=== PATIENT | male | born 1970 | race Caucasian/White ===

== ENCOUNTER 2019-03-02 04:45 | Emergency (ER) | payer MEDICAID ==
--- NOTE | 2019-03-02 04:51 | ED Physician Documentation ---
PD HPI ANIMAL BITE - Stated complaint Stated Complaint: DOG BITE - History obtained from History obtained from: Patient - History of Present Illness Location of injury(ies): RLE (he says he was bitten by his friends dog as he went to pet it. Bit right inner thigh, left posterior thigh, and right calf. He says he felt some tingling around the bite area on the right leg briefly after the bite. He also noted some "welts" hives on arms and legs after. Denies new soaps, meds, foods. He was concerned about rabies as he read online that there can be tingling symptoms with the development of rabies. Has noted some redness of the wounds the past day.), LLE Details of the event: Dog, Bite, Pet animal, Well appearing, Immunization unknown, Animal can be observed, Animal control notified Timing - onset: How many days ago (4) Timing - duration: Days (had the tingling around the wound just soon after the injury and not since.) Timing - details: Abrupt onset Associated symptoms: Tingling (briefly after the injury, not since.), Discolored (bruising inner right thigh). No: Weakness, Numbness Similar symptoms before: Has not had sx before Review of Systems Constitutional: denies: Fever, Chills, Myalgias Neurologic: denies: Focal weakness, Numbness PD PAST MEDICAL HISTORY - Past Medical History Cardiovascular: None Respiratory: Asthma Neuro: None Endocrine/Autoimmune: None - Present Medications Home Medications: Ambulatory Orders Medication Instructions Recorded Confirmed Albuterol Sulf [Ventolin Hfa 1 - 2 puffs INH Q4HR PRN #1 inhaler 03/02/19 Inhaler] Amox/Clav 875/125 [Augmentin] 1 each PO Q12H #14 tablet 03/02/19 - Allergies Allergies/Adverse Reactions: Allergies Allergy/AdvReac Type Severity Reaction Status Date / Time No Known Drug Allergies Allergy Verified 03/02/19 04:52 PD ED PE NORMAL - Vitals Vital signs reviewed: Yes - General General: Alert and oriented X 3, No acute distress, Well developed/nourished - Respiratory Respiratory: No respiratory distress - Derm Derm: Normal color, Warm and dry - Extremities Extremities: Other (right inner thigh with bite fuchs with redness but no drainage. No fluctuance. There is bruising noted medial thigh. No deeper muscle tenderness. Right calf and posterior left thigh with bites with redness as well. No drainage nor fluctuance. Locally tender. No deeper muscle tenderness. ) - Neuro Neuro: Alert and oriented X 3, No motor deficit, No sensory deficit, Normal speech Results - Vitals Vitals: Vital Signs - 24 hr 03/02/19 04:47 Temperature 36.2 C L Heart Rate 103 H Respiratory 16 Rate Blood Pressure 115/72 O2 Saturation 97 PD MEDICAL DECISION MAKING - ED course Complexity details: considered differential (Presume some peripheral nerve irritation caused the tingling right after the bite, as that would not be indicative of rabies. Nurse notified [facility] to report it and Animal Control will follow up with the dog plastic shaper. ), d/w patient Departure - Departure Disposition: 01 Home, Self Care Clinical Impression: Infected wound Dog bite of multiple sites of lower extremity Qualifiers: Encounter type: initial encounter Laterality: unspecified laterality Qualified Code(s): S81.859A - Open bite, unspecified lower leg, initial encounter Condition: Stable Record reviewed to determine appropriate education?: Yes Instructions: ED Bite Dog Prescriptions: Albuterol Sulf [Ventolin Hfa Inhaler] 1 - 2 puffs INH Q4HR PRN #1 inhaler PRN Reason: Shortness Of Air/Wheezing Amox/Clav 875/125 [Augmentin] 1 each PO Q12H #14 tablet Comments: The wounds do have some redness suggesting a mild early infection. Use Augmentin twice daily for the next week. Use ibuprofen or naproxen anti-inflammatories to decrease some of the irritation and pain. [place] it is not recommended by the health department to treat for rabies but to just follow-up on the animal to ensure there is doing okay. Animal control was contacted and they will follow-up with the dog's plastic shaper to ensure no symptoms of rabies develop in the dog.
[2019-03-02 04:52] VITALS: BP 115/72
[2019-03-02] MEDS ORDERED: IBUPROFEN 600 MG TABLET PO STA (05:03)
[2019-03-02] MEDS ORDERED: AMOX/CLAV 875 MG/125 MG TABLET PO STA (05:03)
== END 2019-03-02 05:22 | disposition home or self-care (01) ==
LOC: ED 04:45
DX: S71.152A Open bite, left thigh, initial encounter (principal); S71.151A Open bite, right thigh, initial encounter; S81.851A Open bite, right lower leg, initial encounter; L08.9 Local infection of the skin and subcutaneous tissue, unspecified; W54.0XXA Bitten by dog, initial encounter
CPT/HCPCS: 99283; A9270

== ENCOUNTER 2019-06-22 17:50 | Outpatient (CLI) | payer MEDICAID | END 2019-06-22 17:51 | disposition critical access hospital (66) | LOC: EMS 17:50 | PROVIDERS: ATTEND Surgery | DX: R11.10 Vomiting, unspecified (principal); Z72.89 Other problems related to lifestyle | CPT/HCPCS: A0425; A0429 ==

== ENCOUNTER 2019-06-22 18:10 | Emergency (ER) | payer MEDICAID ==
[2019-06-22] MEDS ORDERED: ONDANSETRON 4 MG/2 ML VIAL IVP STA (18:35)
[2019-06-22] MEDS ORDERED: SODIUM CHLORIDE 0.9% 1,000 ML IV ONE (18:35)
--- NOTE | 2019-06-22 18:36 | ED Physician Documentation ---
<Moises Sanchez - Last Filed: 06/23/19 06:07> History of Present Illness - Stated complaint Stated Complaint: HBD - Chief complaint Chief Complaint: M[facility] PD PAST MEDICAL HISTORY - Present Medications Home Medications: Ambulatory Orders Medication Instructions Recorded Confirmed Amox/Clav 875/125 [Augmentin] 1 each PO Q12H #14 tablet 03/02/19 RX: Albuterol Sulf [Ventolin Hfa 1 - 2 puffs INH Q4HR PRN #1 inhaler 03/02/19 Inhaler] RX: Azithromycin [Zithromax] 250 mg PO DAILY #6 tablet 06/23/19 - Allergies Allergies/Adverse Reactions: Allergies Allergy/AdvReac Type Severity Reaction Status Date / Time No Known Drug Allergies Allergy Verified 03/02/19 04:52 PD MEDICAL DECISION MAKING - ED course ED course: This 49-year-old homeless male left in the emergency department overnight to sober developed a fever in the fisher weir hours. His fever was high to 39.4. I went in to evaluate the patient and found that he endorses a history of cough congestion headache and sore throat. My examination of the patient shows bilateral otitis and erythema to the posterior pharynx with an enlarged uvula. The patient was febrile and diaphoretic. He is examined and administered intravenous dexamethasone 10 mg and Rocephin 1 g IV and a rapid strep is pending. Departure - Departure Disposition: 01 Home, Self Care Clinical Impression: Alcohol intoxication, Liver enzyme elevation, Otitis media Condition: Good Instructions: ED Alcohol Intoxication, ED Otitis Media Acute Adult Follow-Up: Your,PCP [Other] Prescriptions: RX: Azithromycin [Zithromax] 250 mg PO DAILY #6 tablet Comments: You were seen today after drinking heavily, you have signs on your labs of liver inflammation from your drinking. Please stop drinking, this is causing you great harm. We provided you with resources to contact for detox and treatment of your alcoholism. Please also follow-up with your primary care provider. If you develop severe abdominal pain, severe alcohol withdrawal, or other concerning symptoms return to the emergency department. Discharge Date/Time: 06/23/19 06:37 <Yaw Smith - Last Filed: 06/24/19 06:58> History of Present Illness - Additonal information Additional information: This is a 49-year-old male with a history of alcohol use disorder, asthma, who presents with alcohol intoxication. [place] when he was woken up the patient reportedly told the passerby to call 911. He had vomited on himself when EMS arrived and he requested detox to EMS. He currently states that he drank "a lot" of fireball, and had some stomach upset, denies other complaints. He denies SI, states he was drinking to get drunk. Review of Systems Constitutional: denies: Fever Cardiac: denies: Chest pain / pressure Respiratory: reports: Cough (Chronic for >2 years) GI: reports: Vomiting Psychiatric: reports: Other (Alcohol use) PD PAST MEDICAL HISTORY - Past Medical History Cardiovascular: None Respiratory: Asthma Neuro: None Endocrine/Autoimmune: None Psych: None Musculoskeletal: Osteoarthritis - Past Surgical History General: Cholecystectomy, Appendectomy HEENT: Tonsil/Adenoidectomy - Social History Does the pt smoke?: Yes Smoking Status: Current every day smoker Does the pt drink ETOH?: Yes - Immunizations Immunizations are current?: No Immunizations: TDAP >10years/unknown - POLST Patient has POLST: No PD ED PE NORMAL - Vitals Vital signs reviewed: Yes - General General: Other (Awake, alert, vomit on clothing, answering questions, has slurred speech.) - HEENT HEENT: Atraumatic, PERRL - Neck Neck: Supple, no meningeal sign - Cardiac Cardiac: RRR - Respiratory Respiratory: No respiratory distress, Clear bilaterally, Other (Intermittent cough) - Abdomen Abdomen: Soft, Non tender, Non distended - Derm Derm: Warm and dry - Extremities Extremities: No deformity - Neuro Neuro: No motor deficit, No sensory deficit, Other (Slightly slurred speech, but conversational and oriented to place self and general date) - Psych Psych: Normal mood, Normal affect Results - Vitals Vitals: Oxygen O2 Source Room air - Labs Labs: Laboratory Tests 06/22/19 06/22/19 06/22/19 18:53 18:53 20:15 WBC 14.1 H RBC 4.65 L Hgb 15.2 Hct 43.9 MCV 94.4 H MCH 32.7 H MCHC 34.6 RDW 12.5 Plt Count 207 MPV 10.0 Neut # (Auto) 10.0 H Lymph # (Auto) 2.9 Tensas # (Auto) 0.9 Eos # (Auto) 0.2 Baso # (Auto) 0.1 Absolute Nucleated RBC 0.00 Nucleated RBC % 0.0 Sodium 138 Potassium 3.8 Chloride 101 Carbon Dioxide 29 Anion Gap 8.0 BUN 17 Creatinine 1.0 Estimated GFR (MDRD) 79 L Glucose 145 H Calcium 8.7 Total Bilirubin 1.2 H AST 117 H ALT 71 H Alkaline Phosphatase 84 Total Protein 6.9 Albumin 4.0 Globulin 2.9 Albumin/Globulin Ratio 1.4 Lipase 49 Urine Color YELLOW Urine Clarity CLEAR Urine pH 6.0 Ur Specific Esmond 1.015 Urine Protein NEGATIVE Urine Glucose (UA) NEGATIVE Urine Ketones NEGATIVE Urine Occult Blood NEGATIVE Urine Nitrite NEGATIVE Urine Bilirubin NEGATIVE Urine Urobilinogen 0.2 (NORMAL) Ur Leukocyte Esterase NEGATIVE Ur Microscopic Review NOT INDICATED Urine Culture Comments NOT INDICATED Group A Strep Rapid 06/23/19 03:55 WBC RBC Hgb Hct MCV MCH MCHC RDW Plt Count MPV Neut # (Auto) Lymph # (Auto) Tensas # (Auto) Eos # (Auto) Baso # (Auto) Absolute Nucleated RBC Nucleated RBC % Sodium Potassium Chloride Carbon Dioxide Anion Gap BUN Creatinine Estimated GFR (MDRD) Glucose Calcium Total Bilirubin AST ALT Alkaline Phosphatase Total Protein Albumin Globulin Albumin/Globulin Ratio Lipase Urine Color Urine Clarity Urine pH Ur Specific Esmond Urine Protein Urine Glucose (UA) Urine Ketones Urine Occult Blood Urine Nitrite Urine Bilirubin Urine Urobilinogen Ur Leukocyte Esterase Ur Microscopic Review Urine Culture Comments Group A Strep Rapid Negative PD MEDICAL DECISION MAKING - ED course Complexity details: considered differential (Alcohol intoxication, gastritis, substance use, pancreatitis, electrolyte abnormality, hepatitis) ED course: Patient arrives and is disheveled and obviously intoxicated. He was tachycardic on his initial vital signs but this quickly resolved without intervention. He has a benign abdominal exam and unremarkable neurologic exam other than his slurred speech. Labs are drawn, these are notable for mild leukocytosis likely secondary to demargination from stress in his vomiting and potentially alcoholic gastritis, AST and ALT elevations consistent with his alcohol use. Chest X-ray was obtained given his cough, this shows no acute abnormality. He is afebrile and I doubt pneumonia. He states he has had a cough for years, and this has been unchanged. Patient was given a liter of fluid, as well as Zofran, he is feeling much better. He was subsequently able to drink water and eat food, and he had an entire meal without issue. On repeated neuro exams his slurred speech is improving, he has no new deficits, and he clinically is becoming more sober. He does not have any signs of withdrawal. I discussed with him that his alcohol use is causing him great harm, and he has signs of liver inflammation. I emphasized the importance of quitting alcohol, provided him with information for detox, and recommend that he follow-up closely with his primary care provider. I also reviewed return precautions with him. Patient is homeless, and he is still mildly intoxicated, he will be allowed to stay in the emergency department overnight and if he continues to be well appearing will be discharged early in the morning upon reaching clinical sobriety
[2019-06-22 18:57] LABS: BASOPHILS # (AUTO) 0.1 10^3/uL (0.0-0.1); BASOPHILS % (AUTO) 0.6 %; EOSINOPHILS # (AUTO) 0.2 10^3/uL (0.0-0.7); EOSINOPHILS % (AUTO) 1.3 %; HGB - HEMOGLOBIN 15.2 g/dL (14.0-18.0); LYMPHOCYTES # (AUTO) 2.9 10^3/uL (1.5-3.5); LYMPHOCYTES % (AUTO) 20.4 %; MEAN CORPUSCULAR HEMOGLOBIN 32.7 pg (27.0-31.0); MEAN CORPUSCULAR HGB CONC 34.6 g/dL (32.0-36.0); MEAN CORPUSCULAR VOLUME 94.4 fL (80.0-94.0); MONOCYTES # (AUTO) 0.9 10^3/uL (0.0-1.0); MONOCYTES % (AUTO) 6.3 %; NEUTROPHILS % (AUTO) 70.6 %; PLT - PLATELET COUNT 207 10^3/uL (130-450); RED BLOOD COUNT 4.65 10^6/uL (4.70-6.10); RED CELL DISTRIBUTION WIDTH 12.5 % (12.0-15.0); WHITE BLOOD COUNT 14.1 x10^3/uL (4.8-10.8)
[2019-06-22 19:13] LABS: ALBUMIN/GLOBULIN RATIO 1.4 (1.0-2.2); BILIRUBIN,TOTAL 1.2 mg/dL (0.2-1.0); CALCIUM 8.7 mg/dL (8.5-10.3); TOTAL PROTEIN 6.9 g/dL (6.7-8.2)
[2019-06-22] MEDS ORDERED: IPRATROPIUM/ALBUTEROL 3 ML NEB INH STA (19:46)
[2019-06-22 20:22] LABS: BILIRUBIN,URINE NEGATIVE (NEGATIVE); GLUCOSE, URINE (UA) NEGATIVE (NEGATIVE); KETONES,URINE (UA) NEGATIVE (NEGATIVE); LEUKOCYTE ESTERASE, URINE NEGATIVE (NEGATIVE); NITRITE,URINE NEGATIVE (NEGATIVE); OCCULT BLOOD,URINE NEGATIVE (NEGATIVE); PROTEIN,URINE NEGATIVE (NEGATIVE); UROBILINOGEN,URINE 0.2 (NORMAL) E.U./dL (NORMAL)
[2019-06-22 20:23] LABS: CLARITY,URINE CLEAR (CLEAR)
--- NOTE | 2019-06-22 21:14 | XRAY Report ---
Reason: chest pain Procedure Date: 06/22/2019 Accession Number: [id number] / [id number] Procedure: XR - Chest 1 View X-Ray CPT Code: 11324 FULL RESULT: EXAM: CHEST RADIOGRAPHY EXAM DATE: 06/22/2019 08:49 PM. CLINICAL HISTORY: Chest pain. COMPARISON: None. TECHNIQUE: 1 view. FINDINGS: Lungs/Pleura: No focal opacities evident. No pleural effusion. No pneumothorax. Mediastinum: Within exam limitations, the cardiomediastinal contour is normal. Other: None. IMPRESSION: Normal single view chest. RADIA
[2019-06-23] MEDS ORDERED: DEXAMETHASONE 10 MG/ML VIAL IVP STA (03:57)
[2019-06-23] MEDS ORDERED: ACETAMINOPHEN 325 MG TABLET PO STA (03:57)
[2019-06-23] MEDS ORDERED: cefTRIAXone 1 GM in SODIUM CHLORIDE 0.9% MINIBAG 100 ML IV STA (03:57)
[2019-06-23 06:33] VITALS: BP 150/94
== END 2019-06-23 06:37 | disposition home or self-care (01) ==
LOC: EDUNIT# → ED 18:10
DX: F10.129 Alcohol abuse with intoxication, unspecified (principal); R74.8 Abnormal levels of other serum enzymes; H66.93 Otitis media, unspecified, bilateral; Z59.0 Homelessness
CPT/HCPCS: 36415; 71045; 80053; 81003; 83690; 85025; 87070; 87430; 94640; 94664; 96361; 96365; 96375; 99283; 99284; A9270; 81001; 87086

== ENCOUNTER 2019-07-03 13:41 | Outpatient (CLI) | payer MEDICAID | END 2019-07-03 13:42 | disposition EMS.NT | LOC: EMS 13:41 | PROVIDERS: ATTEND Surgery | DX: Z72.89 Other problems related to lifestyle (principal); Z59.0 Homelessness ==

== ENCOUNTER 2019-08-20 09:04 | Emergency (ER) | payer MEDICAID ==
--- NOTE | 2019-08-20 09:26 | ED Physician Documentation ---
History of Present Illness - Stated complaint Stated Complaint: MOUTH PX - Chief complaint Chief Complaint: General - Additonal information Additional information: This is a 49-year-old male with a history of smoking, who presents with several complaints. His primary complaint is that he has pain in the back left of his mouth, where he has some decayed teeth. He earlier noticed some mild swelling along his lower face which has seemed to resolve in the meantime. He has not seen a dentist recently. He has had a potential low-grade Subjective fever last night, otherwise he has been feeling well. No difficulty with swallowing no joe n with moving his neck. His second complaint is has had a cough for 2 days which is been productive of occasional white sputum. No shortness of breath over his baseline, no chest pain. He has had some runny nose and some mild maxillary sinus discomfort as well. As a third complaint he has had several soft small 1 to 2 cm masses on his back for several years, that he would like looked at. These are nontender, and have not drained anything. Review of Systems Constitutional: denies: Fever Nose: reports: Rhinorrhea / runny nose Throat: reports: Dental pain / toothache Cardiac: denies: Chest pain / pressure Respiratory: reports: Cough. denies: Dyspnea GI: denies: Abdominal Pain, Vomiting Skin: reports: Lesions PD PAST MEDICAL HISTORY - Past Medical History Cardiovascular: None Respiratory: Asthma Neuro: None Endocrine/Autoimmune: None Psych: None Musculoskeletal: Osteoarthritis - Past Surgical History Past Surgical History: Yes General: Cholecystectomy, Appendectomy HEENT: Tonsil/Adenoidectomy - Present Medications Home Medications: Ambulatory Orders Medication Instructions Recorded Confirmed Albuterol Sulf [Ventolin Hfa 1 - 2 puffs INH Q4HR PRN #1 inhaler 03/02/19 Inhaler] Amox/Clav 875/125 [Augmentin] 1 each PO Q12H #14 tablet 03/02/19 Azithromycin [Zithromax] 250 mg PO DAILY #6 tablet 06/23/19 Acetaminophen 650 mg PO Q6HR #30 tablet 08/20/19 Albuterol Sulf [Ventolin Hfa 1 - 2 puffs INH Q4HR PRN #1 inhaler 08/20/19 Inhaler] Amox/Clav 875/125 [Augmentin] 1 each PO Q12H #20 tablet 08/20/19 Ibuprofen 600 mg PO Q6H PRN #30 tablet 08/20/19 - Allergies Allergies/Adverse Reactions: Allergies Allergy/AdvReac Type Severity Reaction Status Date / Time No Known Drug Allergies Allergy Verified 03/02/19 04:52 - Social History Does the pt smoke?: Yes Smoking Status: Current every day smoker Does the pt drink ETOH?: Yes - Immunizations Immunizations are current?: No Immunizations: TDAP >10years/unknown - POLST Patient has POLST: No PD ED PE NORMAL - Vitals Vital signs reviewed: Yes - General General: Alert and oriented X 3 - HEENT HEENT: Atraumatic, Other (Mild posterior pharynx erythema without exudate. There is extensive dental decay, very prominent in the back left lower molars) - Cardiac Cardiac: RRR - Respiratory Respiratory: No respiratory distress - Back Back: Other (There are two 1.5 to 2 cm soft rubbery mobile masses on patient's back, these are nontender without erythema no overlying skin lesions.) Results - Vitals Vitals: Vital Signs - 24 hr 08/20/19 08/20/19 09:12 09:45 Temperature 97.9 C H 36.6 C Heart Rate 91 88 Respiratory 18 18 Rate Blood Pressure 136/81 H 132/80 H O2 Saturation 100 99 Oxygen O2 Source Room air PD MEDICAL DECISION MAKING - ED course Complexity details: considered differential (Dental pain, pulpitis, abscess, URI, COPD, lipoma, tumor) ED course: Pt has poor dentition, no signs of drainable abscess or deep space infection, facial cellulitis, or [employer], we will treat with a course of augmentin and follow up with patient's dentist. The lesions on patient's back appear to be lipomas. They are chronic and I recommended PCP follow up for further evaluation/treatment. Pt's cough symptoms are consistent with a viral URI. He is also a smoker. He has normal oxygen saturation, no fever, normal heart rate, no signs of penumonia. I recommended smoking cessation, supportive care, and PCP follow up. I prescribed him an albuterol inhaler refill on his request, though he has no wheeze or shortness of breath at this time. I also reviewed return precautions. patient agreed and was discharged home. Departure - Departure Disposition: 01 Home, Self Care Clinical Impression: Pain, dental URI (upper respiratory infection) Qualifiers: URI type: unspecified viral URI Qualified Code(s): J06.9 - Acute upper respiratory infection, unspecified Condition: Good Instructions: ED Tooth Pain Follow-Up: [place],Dentist and PCP [Other] - Within 1 week (Call to establish care with PCP and dentist Address: [address] [place] [address] ) Prescriptions: Albuterol Sulf [Ventolin Hfa Inhaler] 1 - 2 puffs INH Q4HR PRN #1 inhaler PRN Reason: Shortness Of Air/Wheezing Acetaminophen 650 mg PO Q6HR #30 tablet Amox/Clav 875/125 [Augmentin] 1 each PO Q12H #20 tablet Ibuprofen 600 mg PO Q6H PRN #30 tablet PRN Reason: Pain Comments: Please see a dentist as soon as possible for your tooth decay. Also take the antibiotic as prescribed. You may take Tylenol and ibuprofen for pain. If you are developing worsening signs of infection such as swelling of your face, difficulty swallowing, please return to the emergency department. You appear to have some lipomas on your back, follow-up with your primary care provider on these lesions, they will sometimes be surgically removed. You may also have an upper respiratory infection which is likely due to a virus, but the antibiotic will cover any potential sinusitis as well. Discharge Date/Time: 08/20/19 09:47
[2019-08-20] MEDS ORDERED: IBUPROFEN 600 MG TABLET PO STA (09:35)
[2019-08-20] MEDS ORDERED: AMOX/CLAV 875 MG/125 MG TABLET PO STA (09:35)
[2019-08-20] MEDS ORDERED: ACETAMINOPHEN 325 MG TABLET PO STA (09:35)
[2019-08-20 09:48] VITALS: BP 132/80
== END 2019-08-20 09:47 | disposition home or self-care (01) ==
LOC: ED 09:04
DX: K08.89 Other specified disorders of teeth and supporting structures (principal); J06.9 Acute upper respiratory infection, unspecified; F17.200 Nicotine dependence, unspecified, uncomplicated
CPT/HCPCS: 99283; A9270

== ENCOUNTER 2019-09-20 22:32 | Outpatient (CLI) | payer MEDICAID | END 2019-09-20 22:33 | disposition critical access hospital (66) | LOC: EMS 22:32 | PROVIDERS: ATTEND Surgery | DX: R20.0 Anesthesia of skin (principal); R05 Cough; R06.2 Wheezing | CPT/HCPCS: A0425; A0429 ==

== ENCOUNTER 2019-09-20 22:47 | Emergency (ER) | payer MEDICAID ==
[2019-09-20] MEDS ORDERED: IPRATROPIUM/ALBUTEROL 3 ML NEB INH STA (23:06)
--- NOTE | 2019-09-20 23:16 | ED Physician Documentation ---
PD HPI URI - Stated complaint Stated Complaint: LEFT ARM NUMBNESS/COUGH - Chief complaint Chief Complaint: Resp - History obtained from History obtained from: Patient - History of Present Illness Timing - onset: How many months ago (1) Timing details: Gradual onset, Still present, Waxing and waning Associated symptoms: Fever, Nasal congestion, Rhinorrhea, Productive cough, Dyspnea Contributing factors: Other (homeless) Improves by: Rest, Medication, MDI/nebulizer Worsened by: Activity Similar symptoms before: Diagnosis (RAD) Recently seen: Emergency Dept - Additional information Additional information: 49-year-old homeless male with a history of reactive airway disease, poor dentition, and recent otitis has been evaluated in the ED last month and was placed on a course of augmentin and albuterol and he took about 4 days of this started to improve and lost his medications. He has increasing symptoms over the past month and today comes in with cough, wheezing, facial swelling, ear pain and low grade fever on and off. He has not been in to see the dentist as yet. Review of Systems Constitutional: reports: Fever Eyes: denies: Decreased vision Ears: reports: Ear pain Nose: reports: Rhinorrhea / runny nose, Congestion Throat: reports: Dental pain / toothache Cardiac: denies: Chest pain / pressure, Palpitations Respiratory: reports: Dyspnea, Cough, Wheezing GI: denies: Abdominal Pain, Nausea, Vomiting : denies: Dysuria, Frequency Skin: denies: Rash PD PAST MEDICAL HISTORY - Past Medical History Past Medical History: Yes Cardiovascular: None Respiratory: Asthma Neuro: None Endocrine/Autoimmune: None Psych: None Musculoskeletal: Osteoarthritis - Past Surgical History Past Surgical History: Yes General: Cholecystectomy, Appendectomy HEENT: Tonsil/Adenoidectomy - Present Medications Home Medications: Ambulatory Orders Medication Instructions Recorded Confirmed Albuterol Sulf [Ventolin Hfa 1 - 2 puffs INH Q4HR PRN #1 inhaler 09/21/19 Inhaler] Azithromycin [Zithromax] 250 mg PO DAILY #6 tablet 09/21/19 predniSONE [Prednisone] 40 mg PO DAILY #10 tablet 09/21/19 - Allergies Allergies/Adverse Reactions: Allergies Allergy/AdvReac Type Severity Reaction Status Date / Time No Known Drug Allergies Allergy Verified 09/20/19 22:55 - Social History Does the pt smoke?: Yes Smoking Status: Current every day smoker Does the pt drink ETOH?: Yes ETOH Use: Beer, Liquor Does the pt have substance abuse?: No - Immunizations Immunizations are current?: No Immunizations: TDAP >10years/unknown - POLST Patient has POLST: No PD ED PE NORMAL - Vitals Vital signs reviewed: Yes (tachy and hypertensive) - General General: Alert and oriented X 3, No acute distress, Well developed/nourished - HEENT HEENT: Atraumatic, PERRL, EOMI, Other (The right TM is mildly inflamed the left TM is markedly inflamed there is significant dental decay both upper and lower to the rear molars bilaterally worse on the left than the right. There is some mild left facial swelling associated with this. 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9 C Heart Rate 95 96 Respiratory 24 20 Rate Blood Pressure 123/90 H 121/91 H O2 Saturation 96 97 Oxygen O2 Source Room air - Rads (name of study) chest Radiology: Prelim report reviewed (Impression: 1. No acute abnormality seen in the chest.), EMP read indepedently, See rad report PD MEDICAL DECISION MAKING - ED course Complexity details: reviewed old records, reviewed results, re-evaluated patient, considered differential, d/w patient ED course: 49 y/o homeless male with poor compliance has bronchitis with RAD and he does not have his inhaler and he did not finish his course of antibiotic prescribed last month. His CXR is without infiltrate and he has OM on exam as well as severe decayed teeth. He is administered IM rocephin a duo-neb treatment and zithromax. He is scripted an inhaler and the remainder of the zithromax. He is administered decadron in the ED and a 5 day course of prednisone. Departure - Departure Disposition: 01 Home, Self Care Clinical Impression: Pain, dental Otitis media Qualifiers: Otitis media type: suppurative Chronicity: acute Laterality: bilateral Recurrence: non-recurrent Spontaneous tympanic membrane rupture: without spontaneous rupture Qualified Code(s): H66.003 - Acute suppurative otitis media without spontaneous rupture of ear drum, bilateral Asthmatic bronchitis with acute exacerbation Qualifiers: Asthma severity: mild Asthma persistence: intermittent Qualified Code(s): J45.21 - Mild intermittent asthma with (acute) exacerbation Instructions: ED Bronchitis Asthmatic, ED Tooth Pain, ED Otitis Media Acute Adult Follow-Up: [facility] [Provider Group] Benson De Los Santos DDS [Provider Admit Priv/Credential] - Prescriptions: Albuterol Sulf [Ventolin Hfa Inhaler] 1 - 2 puffs INH Q4HR PRN #1 inhaler PRN Reason: Shortness Of Air/Wheezing Azithromycin [Zithromax] 250 mg PO DAILY #6 tablet predniSONE [Prednisone] 40 mg PO DAILY #10 tablet Discharge Date/Time: 09/21/19 02:41
[2019-09-20] MEDS ORDERED: ALBUTEROL NEB 2.5 MG/3 ML INH STA (23:53)
[2019-09-20] MEDS ORDERED: cefTRIAXone 1 GM VIAL IM STA (23:53)
[2019-09-20] MEDS ORDERED: LIDOCAINE 1% 2 ML VIAL MC ONE (23:53)
[2019-09-20] MEDS ORDERED: CHERRY SYRUP 10 ML UDC PO ONE (23:53)
[2019-09-20] MEDS ORDERED: DEXAMETHASONE 10 MG/ML VIAL PO STA (23:53)
--- NOTE | 2019-09-21 00:35 | XRAY Report ---
Reason: cough and wheezing Procedure Date: 09/21/2019 Accession Number: [id number] / [id number] Procedure: XR - Chest 2 View X-Ray CPT Code: 16023 Final Report FULL RESULT: EXAM: CHEST RADIOGRAPHY EXAM DATE: 09/21/2019 12:05 AM. CLINICAL HISTORY: Cough and wheezing. COMPARISON: CHEST 1 VIEW 06/22/2019 8:35 PM. TECHNIQUE: 2 views. FINDINGS: Lungs/Pleura: No alveolar consolidation or pleural effusion seen. No pneumothorax. Mediastinum: Heart and mediastinal contours are unremarkable. Other: None. IMPRESSION: 1. No acute abnormality seen in the chest. RADIA
[2019-09-21 02:38] VITALS: BP 121/91
== END 2019-09-21 02:41 | disposition home or self-care (01) ==
LOC: EDUNIT# → EDSEX → EDBD → ED 22:47
DX: J45.21 Mild intermittent asthma with (acute) exacerbation (principal); H66.003 Acute suppurative otitis media without spontaneous rupture of ear drum, bilateral; K08.89 Other specified disorders of teeth and supporting structures; K02.9 Dental caries, unspecified; F17.200 Nicotine dependence, unspecified, uncomplicated; Z59.0 Homelessness
CPT/HCPCS: 71046; 94640; 96372; 99284; A9270

== ENCOUNTER 2019-10-07 02:54 | Outpatient (CLI) | payer MEDICAID | END 2019-10-07 02:55 | disposition critical access hospital (66) | LOC: EMS 02:54 | PROVIDERS: ATTEND Surgery | DX: R07.9 Chest pain, unspecified (principal); Z59.0 Homelessness | CPT/HCPCS: A0425; A0427; A0999 ==

== ENCOUNTER 2019-10-07 07:28 | Emergency (ER) | payer MEDICAID ==
[2019-10-07 08:56] LABS: MUDS CUTOFF CONCENTRATIONS CUTOFF CONC BELOW:
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
[2019-10-07 09:12] LABS: BILIRUBIN,URINE NEGATIVE (NEGATIVE); GLUCOSE, URINE (UA) NEGATIVE (NEGATIVE); KETONES,URINE (UA) NEGATIVE (NEGATIVE); LEUKOCYTE ESTERASE, URINE NEGATIVE (NEGATIVE); NITRITE,URINE NEGATIVE (NEGATIVE); OCCULT BLOOD,URINE NEGATIVE (NEGATIVE); PH,URINE 5.5 PH (5.0-7.5); PROTEIN,URINE NEGATIVE (NEGATIVE); UROBILINOGEN,URINE 0.2 (NORMAL) E.U./dL (NORMAL)
[2019-10-07 09:14] LABS: CLARITY,URINE CLEAR (CLEAR)
[2019-10-07 09:16] LABS: ACETAMINOPHEN < 10 ug/mL (10-30); SALICYLATE < 6.0 mg/dL
[2019-10-07 09:21] LABS: AMPHETAMINE SCREEN,URINE NEGATIVE (NEGATIVE); BENZODIAZEPINES SCREEN, URINE NEGATIVE (NEGATIVE); COCAINE SCREEN URINE NEGATIVE (NEGATIVE); METHADONE SCREEN, URINE NEGATIVE (NEGATIVE); METHAMPHETAMINES SCREEN, URINE NEGATIVE (NEGATIVE); OPIATE SCREEN, URINE NEGATIVE (NEGATIVE); OXYCODONE SCREEN, URINE NEGATIVE (NEGATIVE); PROPOXYPHENE SCREEN, URINE NEGATIVE (NEGATIVE); TRICYCLIC ANTIDEPRESSANT,URINE NEGATIVE (NEGATIVE)
[2019-10-07] MEDS ORDERED: IBUPROFEN 600 MG TABLET PO STA (10:17)
[2019-10-07 11:32] VITALS: BP 161/99
== END 2019-10-07 11:43 | disposition home or self-care (01) ==
LOC: ED 07:28
DX: R45.851 Suicidal ideations (principal); F10.920 Alcohol use, unspecified with intoxication, uncomplicated; Y90.3 Blood alcohol level of 60-79 mg/100 ml; K08.89 Other specified disorders of teeth and supporting structures; R07.89 Other chest pain; J44.9 Chronic obstructive pulmonary disease, unspecified; F17.210 Nicotine dependence, cigarettes, uncomplicated; Z59.0 Homelessness
CPT/HCPCS: 36415; 71045; 80053; 80306; 80307; 80320; 80329; 81003; 83690; 84443; 84484; 85025; 93005; 96374; 99284; A9270; 81001; 87086

== ENCOUNTER 2019-12-05 15:34 | Outpatient (CLI) | payer MEDICAID | END 2019-12-05 15:35 | disposition critical access hospital (66) | LOC: EMS 15:34 | PROVIDERS: ATTEND Surgery | DX: R10.9 Unspecified abdominal pain (principal); R11.2 Nausea with vomiting, unspecified; R19.7 Diarrhea, unspecified | CPT/HCPCS: A0425; A0429; A0999 ==

== ENCOUNTER 2019-12-05 15:49 | Emergency (ER) | payer MEDICAID ==
[2019-12-05 16:11] LABS: BASOPHILS % (AUTO) 0.2 %; EOSINOPHILS # (AUTO) 0.1 10^3/uL (0.0-0.7); EOSINOPHILS % (AUTO) 1.2 %; HGB - HEMOGLOBIN 14.1 g/dL (14.0-18.0); LYMPHOCYTES # (AUTO) 0.6 10^3/uL (1.5-3.5); LYMPHOCYTES % (AUTO) 12.7 %; MEAN CORPUSCULAR HEMOGLOBIN 31.3 pg (27.0-31.0); MEAN CORPUSCULAR HGB CONC 34.2 g/dL (32.0-36.0); MEAN CORPUSCULAR VOLUME 91.4 fL (80.0-94.0); MEAN PLATELET VOLUME 9.7 fL (7.4-11.4); MONOCYTES # (AUTO) 0.4 10^3/uL (0.0-1.0); MONOCYTES % (AUTO) 8.4 %; NEUTROPHILS # (AUTO) 3.8 10^3/uL (1.5-6.6); NEUTROPHILS % (AUTO) 77.1 %; PLT - PLATELET COUNT 154 10^3/uL (130-450); RED BLOOD COUNT 4.51 10^6/uL (4.70-6.10); WHITE BLOOD COUNT 4.9 x10^3/uL (4.8-10.8)
[2019-12-05 16:23] LABS: ALBUMIN 3.6 g/dL (3.2-5.5); ALBUMIN/GLOBULIN RATIO 1.3 (1.0-2.2); BILIRUBIN,TOTAL 0.8 mg/dL (0.2-1.0); CALCIUM 8.7 mg/dL (8.5-10.3); CREATININE 0.8 mg/dL (0.6-1.2); TOTAL PROTEIN 6.4 g/dL (6.7-8.2)
--- NOTE | 2019-12-05 17:56 | ED Physician Documentation ---
PD HPI ABD PAIN - Stated complaint Stated Complaint: ABD PX - Chief complaint Chief Complaint: Abd Pain - History obtained from History obtained from: Patient - History of Present Illness Timing - onset: How many days ago (2) Timing - duration: Days (2) Timing - details: Gradual onset (had upper and left abd pain for 2 days intermittently after eating "bad pickle" and then last night started vomiting and diarrhea. Has had some nasal congestion and cough as well.), Still present Quality: Cramping, Aching Location: Epigastric, LUQ Radiation: No: Lower back, Left flank Improved by: No: BM Worsened by: Eating Associated symptoms: Nausea, Vomiting, Diarrhea. No: Fever, Hematemesis, Constipation, Melena, Hematochezia, Near syncope / syncope Similar symptoms before: Has not had sx before Recently seen: Not recently seen Review of Systems Constitutional: reports: Myalgias, Fatigue. denies: Fever, Chills Nose: reports: Congestion Throat: denies: Sore throat Respiratory: reports: Cough GI: reports: Abdominal Pain, Nausea, Vomiting, Diarrhea. denies: Constipation, Hematemesis, Bloody / black stool : denies: Dysuria, Frequency Neurologic: reports: Generalized weakness. denies: Focal weakness, Numbness, Near syncope, Altered mental status, Headache PD PAST MEDICAL HISTORY - Past Medical History Cardiovascular: None Respiratory: Asthma Neuro: None Endocrine/Autoimmune: None Psych: None Musculoskeletal: Osteoarthritis - Past Surgical History Past Surgical History: Yes General: Cholecystectomy, Appendectomy HEENT: Tonsil/Adenoidectomy - Present Medications Home Medications: Ambulatory Orders Medication Instructions Recorded Confirmed Albuterol Sulf [Ventolin Hfa 1 - 2 puffs INH Q4HR PRN #1 inhaler 09/21/19 Inhaler] Azithromycin [Zithromax] 250 mg PO DAILY #6 tablet 09/21/19 predniSONE [Prednisone] 40 mg PO DAILY #10 tablet 09/21/19 Albuterol Sulf [Ventolin Hfa 1 - 2 puffs INH Q4HR PRN #1 inhaler 10/07/19 Inhaler] Diphenoxylate/Atropine [Lomotil] 1 each PO QID PRN #12 tablet 12/05/19 Famotidine 20 mg PO DAILY #20 tablet 12/05/19 Promethazine [Phenergan] 25 mg PO Q6H PRN #10 tab 12/05/19 - Allergies Allergies/Adverse Reactions: Allergies Allergy/AdvReac Type Severity Reaction Status Date / Time No Known Drug Allergies Allergy Verified 12/05/19 15:51 - Social History Does the pt smoke?: Yes Smoking Status: Current every day smoker Does the pt drink ETOH?: Yes Does the pt have substance abuse?: No - Immunizations Immunizations are current?: No Immunizations: TDAP >10years/unknown - POLST Patient has POLST: No PD ED PE NORMAL - Vitals Vital signs reviewed: Yes - General General: Alert and oriented X 3, No acute distress, Well developed/nourished - HEENT HEENT: Moist mucous membranes, Pharynx benign - Neck Neck: Supple, no meningeal sign, No adenopathy - Cardiac Cardiac: RRR (tachycardic but regular), No murmur - Respiratory Respiratory: Clear bilaterally - Abdomen Abdomen: Soft, Non distended, No organomegaly, Other (tender upper and left abdomen without guarding nor percussion tenderness. No generalized tenderness. ). No: Normal bowel sounds (diminished) - Male Male : Deferred - Rectal Rectal: Deferred - Back Back: No CVA TTP - Derm Derm: Normal color, Warm and dry - Extremities Extremities: No tenderness to palpate, No edema, No calf tenderness / cord - Neuro Neuro: Alert and oriented X 3, No motor deficit, Normal speech Results - Vitals Vitals: Vital Signs - 24 hr 12/05/19 12/05/19 15:51 22:30 Temperature 37.4 C Heart Rate 110 H 91 Respiratory 18 17 Rate Blood Pressure 129/75 134/81 H O2 Saturation 97 95 Oxygen O2 Source Room air - Labs Labs: Laboratory Tests 12/05/19 12/05/19 12/05/19 16:05 16:05 18:35 WBC 4.9 RBC 4.51 L Hgb 14.1 Hct 41.2 L MCV 91.4 MCH 31.3 H MCHC 34.2 RDW 12.0 Plt Count 154 MPV 9.7 Neut # (Auto) 3.8 Lymph # (Auto) 0.6 L Riley # (Auto) 0.4 Eos # (Auto) 0.1 Baso # (Auto) 0.0 Absolute Nucleated RBC 0.00 Nucleated RBC % 0.0 Sodium 135 Potassium 3.6 Chloride 99 L Carbon Dioxide 25 Anion Gap 11.0 BUN 19 Creatinine 0.8 Estimated GFR (MDRD) 102 Glucose 156 H Calcium 8.7 Total Bilirubin 0.8 AST 32 ALT 27 Alkaline Phosphatase 79 Total Protein 6.4 L Albumin 3.6 Globulin 2.8 Albumin/Globulin Ratio 1.3 Lipase 31 Urine Color YELLOW Urine Clarity CLEAR Urine pH 6.0 Ur Specific [place] 1.010 Urine Protein NEGATIVE Urine Glucose (UA) NEGATIVE Urine Ketones NEGATIVE Urine Occult Blood NEGATIVE Urine Nitrite NEGATIVE Urine Bilirubin NEGATIVE Urine Urobilinogen 0.2 (NORMAL) Ur Leukocyte Esterase NEGATIVE Ur Microscopic Review NOT INDICATED Urine Culture Comments NOT INDICATED Influenza A (Rapid) Influenza B (Rapid) 12/05/19 18:35 WBC RBC Hgb Hct MCV MCH MCHC RDW Plt Count MPV Neut # (Auto) Lymph # (Auto) Riley # (Auto) Eos # (Auto) Baso # (Auto) Absolute Nucleated RBC Nucleated RBC % Sodium Potassium Chloride Carbon Dioxide Anion Gap BUN Creatinine Estimated GFR (MDRD) Glucose Calcium Total Bilirubin AST ALT Alkaline Phosphatase Total Protein Albumin Globulin Albumin/Globulin Ratio Lipase Urine Color Urine Clarity Urine pH Ur Specific [place] Urine Protein Urine Glucose (UA) Urine Ketones Urine Occult Blood Urine Nitrite Urine Bilirubin Urine Urobilinogen Ur Leukocyte Esterase Ur Microscopic Review Urine Culture Comments Influenza A (Rapid) Negative Influenza B (Rapid) Negative PD MEDICAL DECISION MAKING - ED course Complexity details: reviewed results (no acute process to account for pain. I did talk with patient about apparent incidental hemangioma of liver and will want follow up U/S of it in near future. Otherwise presume more likely viral GE given some other URI symptoms too, as opposed to food related from the "bad pickle" he ate prior to symptoms onset. ), considered differential (could be GE or food poisoning with intestinal pain. Pain upper abd so consider pancreatic or gastric. Also consider diverticulitis. Will get CT to eval for focal process. ), d/w patient Departure - Departure Disposition: 01 Home, Self Care Clinical Impression: Nausea vomiting and diarrhea, Hemangioma of liver Abdominal pain Qualifiers: Abdominal location: generalized Qualified Code(s): R10.84 - Generalized abdominal pain Condition: Stable Record reviewed to determine appropriate education?: Yes Instructions: ED Food Poison Or Gastroenteritis Prescriptions: Diphenoxylate/Atropine [Lomotil] 1 each PO QID PRN #12 tablet PRN Reason: Diarrhea Famotidine 20 mg PO DAILY #20 tablet Promethazine [Phenergan] 25 mg PO Q6H PRN #10 tab PRN Reason: Nausea / Vomiting Comments: Your blood tests and CT scan did not show any acute obvious process. Your symptoms would be suggestive of either food related poisoning versus more likely a viral illness. With the vomiting you would have gotten irritated stomach so taking an acid reducing medicine daily for a week or 2 would be appropriate. Use promethazine if needed for nausea and Lomotil if needed for diarrhea. I would anticipate those improving over there the next day or 2. Small but frequent fluids initially and then bland foods such as crackers rice and pastas. Progress diet as tolerated over the next couple of days. Discharge Date/Time: 12/05/19 22:54
[2019-12-05] MEDS ORDERED: DIPHENOX/ATROPINE 2.5/0.025 MG TABLET PO STA (18:18)
[2019-12-05] MEDS ORDERED: FAMOTIDINE 20 MG/2 ML VIAL IVP STA (18:18)
[2019-12-05] MEDS ORDERED: SODIUM CHLORIDE 0.9% 1,000 ML IV ONE ×2 (18:18→18:19)
[2019-12-05] MEDS ORDERED: KETOROLAC 15 MG/ML VIAL IVP STA (18:18)
[2019-12-05] MEDS ORDERED: ONDANSETRON 4 MG/2 ML VIAL IVP STA (18:18)
[2019-12-05] MEDS ORDERED: IOVERSOL 320 100 ML VIAL IVP ONE ×2 (18:38→19:03)
[2019-12-05 18:50] LABS: BILIRUBIN,URINE NEGATIVE (NEGATIVE); GLUCOSE, URINE (UA) NEGATIVE (NEGATIVE); KETONES,URINE (UA) NEGATIVE (NEGATIVE); LEUKOCYTE ESTERASE, URINE NEGATIVE (NEGATIVE); NITRITE,URINE NEGATIVE (NEGATIVE); OCCULT BLOOD,URINE NEGATIVE (NEGATIVE); PROTEIN,URINE NEGATIVE (NEGATIVE); UROBILINOGEN,URINE 0.2 (NORMAL) E.U./dL (NORMAL)
[2019-12-05 18:51] LABS: CLARITY,URINE CLEAR (CLEAR)
--- NOTE | 2019-12-05 19:43 | CT Report ---
Reason: upper abd pain and vomiting for 2 days Procedure Date: 12/05/2019 Accession Number: [id number] / [id number] Procedure: CT - Abdomen/Pelvis W CPT Code: Final Report FULL RESULT: EXAM: CT ABDOMEN AND PELVIS EXAM DATE: 12/05/2019 07:02 PM. CLINICAL HISTORY: Upper abdomen pain and vomiting for 2 days. COMPARISONS: None. TECHNIQUE: Routine helical CT imaging was performed through the abdomen and pelvis. IV contrast: OPTIRAY 320. Enteric contrast: No. Reconstructions: Coronal and sagittal. In accordance with CT protocol optimization, one or more of the following dose reduction techniques were utilized for this exam: automated exposure control, adjustment of mA and/or KV based on patient size, or use of iterative reconstructive technique. FINDINGS: Lung bases: No acute findings. Liver: There is a hypervascular mass seen in segment 8 of the right hepatic lobe with peripheral nodular enhancement, could represent a liver hemangioma but this is not fully characterized, measures 2.3 x 3 cm. The liver contour is within normal limits. Status post cholecystectomy. No bile duct dilatation is seen. Pancreas: Unremarkable. Spleen: Splenomegaly, length of 15.4 cm. Adrenals: Unremarkable Kidneys: Unremarkable. Bowel: Mild sigmoid colon diverticulosis. No acute bowel findings are seen. No dilated bowel loops are seen. Normal appendix. No free fluid or free air. Pelvis: The bladder and remaining pelvic organs appear unremarkable. Vasculature: No acute findings. Bones: No acute bone findings. IMPRESSION: 1. Mild sigmoid colon diverticulosis. No acute bowel findings are seen. Normal appendix. 2. Splenomegaly. 3. Liver mass which could represent a liver hemangioma but this is not fully characterized. A routine liver ultrasound, MRI or CT liver mass protocol could further evaluate. RADIA
[2019-12-05] MEDS ORDERED: PROMETHAZINE INJ 25 MG in SODIUM CHLORIDE 0.9% 50 ML IV STA (20:30)
[2019-12-05] MEDS ORDERED: LIDOCAINE VISCOUS 2% 15 ML UDC MM STA (20:47)
[2019-12-05] MEDS ORDERED: MAG HYDROX/AL HYDROX/SIMETH 30 ML UDC PO STA (20:48)
[2019-12-05 22:31] VITALS: BP 134/81
== END 2019-12-05 22:54 | disposition home or self-care (01) ==
LOC: EDUNIT# → ED 15:49
DX: R10.84 Generalized abdominal pain (principal); R11.2 Nausea with vomiting, unspecified; R19.7 Diarrhea, unspecified; D18.09 Hemangioma of other sites; F17.200 Nicotine dependence, unspecified, uncomplicated
CPT/HCPCS: 36415; 74177; 80053; 81003; 83690; 85025; 87275; 87276; 96361; 96365; 96366; 96375; 99284; A9270; J7040; Q9967; 81001; 87086

== ENCOUNTER 2020-04-20 14:44 | Outpatient (CLI) | payer MEDICAID | END 2020-04-20 14:45 | disposition EMS.NT | LOC: EMS 14:44 | PROVIDERS: ATTEND Surgery | DX: Z03.89 Encounter for observation for other suspected diseases and conditions ruled out (principal) ==

== ENCOUNTER 2020-06-21 06:16 | Outpatient (CLI) | payer MEDICAID | END 2020-06-21 06:17 | disposition critical access hospital (66) | LOC: EMS 06:16 | PROVIDERS: ATTEND Surgery | DX: R06.00 Dyspnea, unspecified (principal); R22.2 Localized swelling, mass and lump, trunk | CPT/HCPCS: A0425; A0429 ==

== ENCOUNTER 2020-06-21 06:32 | Emergency (ER) | payer MEDICAID ==
[2020-06-21 06:38] VITALS: BP 155/99
--- NOTE | 2020-06-21 07:06 | ED Physician Documentation ---
PD HPI DYSPNEA - Stated complaint Stated Complaint: SOA - Chief complaint Chief Complaint: Resp - History obtained from History obtained from: Patient - History of Present Illness Timing - onset: How many days ago (several days to a week of increasing swelling and pain on back lumps. The lumps had been there for months, but not abruptly worsening.) Timing - onset during: Light activity Timing - details: Gradual onset Inciting event(s): Out of meds (has ALbuterol MDI but is out. Had been using it more the past couple of weeks.) Improved by: Inhaler/neb, Rest Associated symptoms: Cough, Wheezing. No: Fever, Hemoptysis, Chest pain / discomfort, Bilateral edema Similar symptoms before: Diagnosis (COPD/asthma) Recently seen: Not recently seen Review of Systems Constitutional: denies: Fever, Chills Nose: reports: Congestion. denies: Rhinorrhea / runny nose Throat: denies: Sore throat Cardiac: denies: Chest pain / pressure, Palpitations Respiratory: reports: Dyspnea, Cough (nonproductive), Wheezing GI: denies: Abdominal Pain, Nausea, Vomiting, Diarrhea : denies: Discharge Skin: reports: Lesions (2 lumps on back that had been there, abruptly getting swollen and painful the past week or so.) PD PAST MEDICAL HISTORY - Past Medical History Past Medical History: Yes Cardiovascular: None Respiratory: Asthma Neuro: None Endocrine/Autoimmune: None GI: None : None HEENT: None Psych: None Musculoskeletal: Osteoarthritis Derm: None - Past Surgical History Past Surgical History: Yes General: Cholecystectomy, Appendectomy HEENT: Tonsil/Adenoidectomy - Present Medications Home Medications: Ambulatory Orders Medication Instructions Recorded Confirmed Albuterol Sulf [Ventolin Hfa 1 - 2 puffs INH Q4HR PRN #1 inhaler 09/21/19 Inhaler] Azithromycin [Zithromax] 250 mg PO DAILY #6 tablet 09/21/19 predniSONE [Prednisone] 40 mg PO DAILY #10 tablet 09/21/19 Albuterol Sulf [Ventolin Hfa 1 - 2 puffs INH Q4HR PRN #1 inhaler 10/07/19 Inhaler] Diphenoxylate/Atropine [Lomotil] 1 each PO QID PRN #12 tablet 12/05/19 Famotidine 20 mg PO DAILY #20 tablet 02/19/20 Promethazine [Phenergan] 25 mg PO Q6H PRN #10 tab 12/05/19 Albuterol Sulfate [Albuterol 2 puffs IH QID #1 hfa.aer.ad 06/21/20 Sulfate Hfa] Doxycycline Monohydrate 100 mg PO BID #14 tablet 06/21/20 Hydrocodone/Acetaminophen [Ismay 1 each PO Q6H PRN #12 tablet 06/21/20 5-325 Tablet] Naproxen 500 mg PO BID #25 tablet 06/21/20 dexAMETHasone [Decadron] 4 mg PO DAILY #5 tablet 06/21/20 - Allergies Allergies/Adverse Reactions: Allergies Allergy/AdvReac Type Severity Reaction Status Date / Time No Known Drug Allergies Allergy Verified 06/21/20 06:40 - Social History Does the pt smoke?: Yes Smoking Status: Current every day smoker Does the pt drink ETOH?: Yes Does the pt have substance abuse?: No - Immunizations Immunizations are current?: No Immunizations: TDAP >10years/unknown - POLST Patient has POLST: No PD ED PE NORMAL - Vitals Vital signs reviewed: Yes - General General: Alert and oriented X 3, No acute distress, Well developed/nourished - HEENT HEENT: Moist mucous membranes, Pharynx benign - Neck Neck: Supple, no meningeal sign, No adenopathy - Cardiac Cardiac: RRR, No murmur - Respiratory Respiratory: No: Clear bilaterally (wheezing noted without congested sounds. ) - Abdomen Abdomen: Soft, Non tender - Derm Derm: Normal color, Warm and dry - Extremities Extremities: No tenderness to palpate, Normal ROM s pain, No edema, No calf tenderness / cord - Neuro Neuro: Alert and oriented X 3, No motor deficit, Normal speech Results - Vitals Vitals: Vital Signs - 24 hr 06/21/20 06/21/20 06:35 08:01 Temperature 36.6 C Heart Rate 99 88 Respiratory 19 18 Rate Blood Pressure 155/99 H O2 Saturation 97 Oxygen O2 Source Room air - Rads (name of study) chest xray Radiology: Prelim report reviewed (large lung volumes c/w COPD. No infiltrates. ), See rad report Procedures - Abscess I&D (location) upper back x 2 Preparation: Lidocaine 1%, With epi Incision: Incised with scalpel, Purulent drainage, Irrigated. No: Packed, Culture obtained Other: Pt tolerated well, Antibiotic prescribed PD MEDICAL DECISION MAKING - ED course Complexity details: reviewed results, considered differential (here mainly for back abscesses and pain, but states dyspnea and out of MDI as well. ), d/w patient Departure - Departure Disposition: 01 Home, Self Care Clinical Impression: Abscess of back Dyspnea Qualifiers: Dyspnea type: shortness of breath Qualified Code(s): R06.02 - Shortness of breath Exacerbation of asthma Qualifiers: Asthma severity: mild Asthma persistence: intermittent Qualified Code(s): J45.21 - Mild intermittent asthma with (acute) exacerbation Condition: Stable Record reviewed to determine appropriate education?: Yes Instructions: ED Abscess IandD Follow-Up: [facility] [Provider Group] [facility] [Provider Group] Prescriptions: Albuterol Sulfate [Albuterol Sulfate Hfa] 2 puffs IH QID #1 hfa.aer.ad dexAMETHasone [Decadron] 4 mg PO DAILY #5 tablet Doxycycline Monohydrate 100 mg PO BID #14 tablet Naproxen 500 mg PO BID #25 tablet Hydrocodone/Acetaminophen [Ismay 5-325 Tablet] 1 each PO Q6H PRN #12 tablet PRN Reason: Pain Comments: If possible, cleanse the areas of the abscesses once or twice daily in a shower or soap and water. You can do warm moist towels to the area as well to promote drainage. I would anticipate drainage for another couple of days out of them. Doxycycline antibiotic twice daily for a week for the infection. This should help if there is some bronchitis as well. Use the inhaler albuterol 2 to 3 puffs 4 times a day as needed for wheezing. Decadron steroid daily for 5 more days to help with wheezing as well. naproxen twice daily for pain and add Tylenol or hydrocodone as needed. Follow-up with a local provider at their next available appointment. If the cysts and abscess on your back heal up well, they subsequently will need excision of the underlying cyst to reduce the chance of recurrence. Follow-up with dermatology for that. Discharge Date/Time: 06/21/20 09:19
[2020-06-21] MEDS ORDERED: CLINDAMYCIN 600 MG/50 ML 50 ML IV ONE (07:18)
[2020-06-21] MEDS ORDERED: SODIUM CHLORIDE 0.9% 1,000 ML IV STA (07:18)
[2020-06-21] MEDS ORDERED: ALBUTEROL 1 PUFF INH STA (07:18)
[2020-06-21] MEDS ORDERED: MORPHINE 2 MG/ML CARPUJECT IVP STA (07:21)
[2020-06-21] MEDS ORDERED: KETOROLAC 30 MG/ML VIAL IVP STA (07:21)
--- NOTE | 2020-06-21 07:54 | XRAY Report ---
PROCEDURE: Chest 2 View X-Ray INDICATIONS: cough soa TECHNIQUE: 2 view(s) of the chest. COMPARISON: Prior chest plain film 09/21/2019. FINDINGS: Surgical changes and devices: None. Lungs and pleura: No pleural effusions or pneumothorax. Lungs are clear however the lung volumes ar e large and the diaphragms are flattened on the lateral view. Possible COPD.. Mediastinum: Mediastinal contours are normal. Heart size is normal. Bones and chest wall: No suspicious bony abnormalities. Soft tissues appear unremarkable. IMPRESSION: Large lung volumes, which can be seen in the setting of COPD but a aggressive inspirator y effort also could produce this appearance. Reviewed by: Kyler Villa MD on 06/21/2020 7:52 AM PDT Approved by: Kyler Villa MD on 06/21/2020 7:52 AM PDT Station ID: [id number]
[2020-06-21] MEDS ORDERED: DEXAMETHASONE 10 MG/ML VIAL IVP STA (08:43)
== END 2020-06-21 09:19 | disposition home or self-care (01) ==
LOC: EDUNIT# → ED 06:32
DX: L02.212 Cutaneous abscess of back [any part, except buttock and flank] (principal); J45.21 Mild intermittent asthma with (acute) exacerbation; J44.9 Chronic obstructive pulmonary disease, unspecified; F17.200 Nicotine dependence, unspecified, uncomplicated
CPT/HCPCS: 10060; 71046; 94640